=== PATIENT | female | born 1965 | race Caucasian/White ===

== ENCOUNTER → 2016-11-03 | Outpatient (CLI) | payer OTHER | LOC: KOH-I 11:30 | DX: M54.5 Low back pain (principal); M51.36 Other intervertebral disc degeneration, lumbar region; M41.9 Scoliosis, unspecified | CPT/HCPCS: 72110 ==

== ENCOUNTER 2020-07-22 03:36 | Emergency (ER) | payer OTHER ==
[2020-07-22 04:21] LABS: HEMOGLOBIN 13.3 gm/dl (12.3-15.3); RED BLOOD COUNT 4.71 M/UL (4.00-5.10); WHITE BLOOD COUNT 4.6 K/UL (4.5-11.0)
[2020-07-22 04:50] LABS: BUN/CREATININE RATIO 16 (0-10)
[2020-07-22] MEDS ORDERED: ASPIRIN CHEWABL81 MG PO (06:13)
[2020-07-22] MEDS ORDERED: DECADRON4 MG PO (06:13)
== END 2020-07-22 07:02 | disposition home or self-care (01) ==
LOC: ER1 03:36
DX: Z23 Encounter for immunization (principal); U07.1 COVID-19
CPT/HCPCS: 0240U; 71045; 80053; 81001; 82550; 82553; 83605; 83874; 84484; 85025; 87040; 87081; 87880; 93005; 96374; 99284; J2405; M0245

== ENCOUNTER 2020-07-28 12:28 | Emergency (ER) | payer OTHER ==
[~2020-07-28 12:28] MED LIST: ASPIRIN CHEWABL81 MG PO; DECADRON4 MG PO
[2020-07-28 14:03] LABS: HEMOGLOBIN 13.9 gm/dl (12.3-15.3); RED BLOOD COUNT 4.95 M/UL (4.00-5.10); WHITE BLOOD COUNT 16.9 K/UL (4.5-11.0)
[2020-07-28 14:28] LABS: BUN/CREATININE RATIO 28 (0-10)
[2020-07-28] MEDS ORDERED: OMNICEF 300 MG300 MG PO (20:31)
[2020-07-28] MEDS ORDERED: ZITHROMAX250 MG PO (20:31)
== END 2020-07-28 22:10 | disposition home or self-care (01) ==
LOC: ER1 12:28
PROVIDERS: Physician Assistant
DX: U07.1 COVID-19 (principal); J12.82 Pneumonia due to coronavirus disease 2019; I10 Essential (primary) hypertension; Z91.041 Radiographic dye allergy status
CPT/HCPCS: 71045; 80053; 82550; 82553; 83874; 84484; 85025; 85379; 93005; 96374; 99285; J0696